=== PATIENT | female | born 1965 | race Caucasian/White ===

== ENCOUNTER 2021-11-01 03:11 | Emergency (ER) | payer MEDICAID ==
[~2021-11-01] VITALS: Ht 149.9 cm; Wt 64.9 kg
[2021-11-01 03:14] VITALS: BP 121/74
--- NOTE | 2021-11-01 03:21 | NUR ---
PT TAKEN TO BED 4
--- NOTE | 2021-11-01 03:30 | NUR ---
PATIENT AMBULATED TO THE AND BACK TO BED 4
--- NOTE | 2021-11-01 03:37 | NUR ---
Dr. Stanford examining patient.
[2021-11-01] MEDS ORDERED: PANTOPRAZOLE 40 MG TABEC PO ONE (03:50)
[2021-11-01] MEDS ORDERED: ACETAMINOPHEN EXTRA STRENGTH 500 MG TAB PO ONE (03:50)
--- NOTE | 2021-11-01 03:55 | NUR ---
LAB AT BEDSIDE
--- NOTE | 2021-11-01 04:00 | NUR ---
56/F C/O INDIRA UPPER ABD PAIN, INTERMMITTENT AND SHARP 9/10 X3 MONTHS. PATIENT WAS SEEN BY [facility]IST[facility] POOLE WITH CHOLELITHIASIS. PATIENT TOOK OMEPRAZOLE AND AMOXI. AND STOPPED ON TUESDAY BECAUSE PCP TOLD PATIENT TO NO LONGER TAKE. PATIENT DENIES N/V/D/C/SOB/CP AT THIS TIME. PMHX CHOLELITHIASIS MEDS DENIES NKA
[2021-11-01 04:30] LABS: BASOPHILS % (AUTO) 0.8 % (0.0-2.0); EOSINOPHILS # (AUTO) 0.1 K/uL (0-0.4); EOSINOPHILS % (AUTO) 2.7 % (0.0-4.0); HEMATOCRIT 38.1 % (36-48); HEMOGLOBIN 13.1 g/dL (12.0-16.0); LYMPHOCYTES # (AUTO) 1.8 K/uL (2.5-16.5); LYMPHOCYTES % (AUTO) 39.9 % (20.5-51.1); MEAN CORPUSCULAR HEMOGLOBIN 30 pg (27-31); MEAN CORPUSCULAR HGB CONC 34 g/dL (33-37); MONOCYTES # (AUTO) 0.3 K/uL (0.8-1.0); MONOCYTES % (AUTO) 6.3 % (1.7-9.3); NEUTROPHILS # (AUTO) 2.3 K/uL (1.8-7.7); NEUTROPHILS % (AUTO) 50.3 % (42.2-75.2); PLATELET COUNT (AUTO) 112 K/uL (140-450); RED BLOOD CELL COUNT(AUTO) 4.33 MIL/uL (4.20-5.40); RED CELL DISTRIBUTION WIDTH 13.8 % (11.6-13.7); WHITE BLOOD COUNT (AUTO) 4.5 K/uL (4.8-10.8)
[2021-11-01 04:45] LABS: ALBUMIN 3.4 g/dL (3.4-5.0); ANION GAP 10.6 (8-16); CREATININE 0.6 mg/dL (0.6-1.3); POTASSIUM 3.6 mmol/L (3.5-5.1); TOTAL BILIRUBIN 0.5 mg/dL (0.0-1.0)
--- NOTE | 2021-11-01 05:00 | NUR ---
CALLED [facility] AND RECEIVED AN UPDATE. [facility] STATED THAT THEY MISSED THE ORDER, THEREFORE SOMEONE FROM [facility] WOULD COME AROUND 6AM. MD AND PATIENT MADE AWARE.
--- NOTE | 2021-11-01 05:40 | NUR ---
IV ESTABLISHED 20G RIGHT AC
--- NOTE | 2021-11-01 05:45 | NUR ---
PATIENT STATED PAIN HAD DECREASED TO A TOLERABLE 4/10 AT THIS TIME.
--- NOTE | 2021-11-01 05:50 | NUR ---
BLOOD COLLECTED AND WALKED TO LAB
--- NOTE | 2021-11-01 06:11 | NUR ---
US AT BEDSIDE
--- NOTE | 2021-11-01 06:31 | NUR ---
PATIENT AMBULATED TO THE AND BACK TO BED
--- NOTE | 2021-11-01 07:15 | NUR ---
Pt report given to DALTON Roberts. Transfer of care at this time.
[2021-11-01] MEDS ORDERED: IBUP-2213 PO (07:50)
[2021-11-01] MEDS ORDERED: ACET-8386 PO (07:50)
[2021-11-01 08:02] VITALS: BP 117/65
--- NOTE | 2021-11-01 08:02 | NUR ---
Patient discharged with v/s stable. Written and verbal after care instructions given and explained. Patient alert, oriented and verbalized understanding of instructions. Ambulatory with steady gait. All questions addressed prior to discharge. ID band removed. Patient advised to follow up with PMD. Rx of ibuprofen, hydrocodone (sent) given. Patient educated on indication of medication including possible reaction and side effects. Opportunity to ask questions provided and answered. copy of labs and us given
== END 2021-11-01 08:02 | disposition home or self-care (01) ==
LOC: MED 03:11
DX: R10.11 Right upper quadrant pain (principal); Z79.899 Other long term (current) drug therapy
CPT/HCPCS: 36415; 76705; 80053; 81002; 81025; 83690; 84484; 85025; 93005; 99285; Q0092